=== PATIENT | female | born 1960 | race Caucasian/White ===

== ENCOUNTER 2025-01-31 07:56 | Day surgery (SDC) | payer MEDICARE, OTHER ==
[2025-01-31] VITALS (7 sets, daily range): BP systolic 102–115; BP diastolic 40–63; PULSE 55–69; RESP 11–15; TEMP 99.2; O2SAT 96–100
[~2025-01-31] VITALS: Ht 167.6 cm; Wt 64.0 kg
[~2025-01-31 07:56] MED LIST: EZET10TA80 PO; FENO48TA10 PO; MULT-1085 PO; ringers solution, lacted 1,000 ML IV SCH; simethicone 40mg/0.6ml oral drops 15ml PO ONE
[2025-01-31] MEDS ORDERED: midazolam 1 mg/ML 2ml injection ONE (11:50)
[2025-01-31] MEDS ORDERED: fentaNYL/PF 50MCG/1 ML 2ML syringe ONE (11:50)
[2025-01-31] MEDS ORDERED: propofol inj 20 ML IV ONE (12:04)
== END 2025-01-31 12:59 | disposition home or self-care (01) ==
LOC: PAS 07:56
PROVIDERS: ATTEND Internal Medicine Gastroenterology
DX: Z12.11 Encounter for screening for malignant neoplasm of colon (principal); E78.5 Hyperlipidemia, unspecified; Z88.5 Allergy status to narcotic agent
CPT/HCPCS: A4615; A4620; G0121; J2250; J2704; J3010; J7120; Z7512; 45378